=== PATIENT | male | born 1960 | race Caucasian/White ===

== ENCOUNTER 2017-09-13 01:53 | Day surgery (SDC) | payer BC ==
[~2017-09-13] VITALS: Ht 182.9 cm; Wt 103.9 kg
[2017-09-13] MEDS ORDERED: LIDOCAINE/SOD BICARB 8.4% SYR ID ONE (13:15)
[2017-09-13] MEDS ORDERED: NORMOSOL R SOLN(*) 1000 ML BAG 1,000 ML IV PRN (13:15)
[2017-09-13 13:22] VITALS: BP 150/94
[2017-09-13 14:25] VITALS: BP 130/88
[2017-09-13 14:55] VITALS: BP 116/85
== END 2017-09-13 15:09 | disposition home or self-care (01) ==
LOC: OR 01:53
PROVIDERS: ATTEND Family Medicine
DX: Z12.11 Encounter for screening for malignant neoplasm of colon (principal); E11.9 Type 2 diabetes mellitus without complications
CPT/HCPCS: 36416; 82948

== ENCOUNTER → 2017-10-03 | Outpatient (CLI) | payer BC | LOC: RESP 20:54 | PROVIDERS: ATTEND Physician Assistant | DX: G47.33 Obstructive sleep apnea (adult) (pediatric) (principal); G47.61 Periodic limb movement disorder; G47.36 Sleep related hypoventilation in conditions classified elsewhere; E66.9 Obesity, unspecified ==

== ENCOUNTER → 2018-06-18 | Outpatient (CLI) | payer BC ==
--- NOTE | 2018-06-18 10:18 | EKG ---
FACILITY: [facility] PATIENT NAME: SABRA PFEIFFER : [id number] MR: [id number] V: [id number] EXAM DATE: ORDERING PHYSICIAN: DALILA PACE TECHNOLOGIST: Test Reason : Blood Pressure : / mmHG Vent. Rate : 120 BPM Atrial Rate : 182 BPM P-R Int : 000 ms QRS Dur : 098 ms QT Int : 330 ms P-R-T Axes : 000 062 -59 degrees QTc Int : 466 ms Atrial fibrillation with rapid ventricular response Nonspecific ST abnormality Abnormal QRS-T angle, consider primary T wave abnormality Abnormal ECG No previous ECGs available Confirmed by Anand Vilchis ([id number]) on 06/18/2018 10:37:57 PM Referred By: Confirmed By:Anand Crum
== END ==
LOC: RESP 09:31
PROVIDERS: ATTEND Physician Assistant
DX: I48.91 Unspecified atrial fibrillation (principal); R94.31 Abnormal electrocardiogram [ECG] [EKG]; I45.81 Long QT syndrome
CPT/HCPCS: 93005

== ENCOUNTER → 2018-06-26 | Outpatient (CLI) | payer BC | LOC: US 00:30 | PROVIDERS: ATTEND Physician Assistant | DX: I51.7 Cardiomegaly (principal); I48.91 Unspecified atrial fibrillation | CPT/HCPCS: 93306 ==

== ENCOUNTER → 2018-09-12 | Outpatient (CLI) | payer BC ==
[~2018-09-12] MED LIST: REGADENOSON 0.4 MG/5 ML SYR ONE
--- NOTE | 2018-09-12 17:52 | RADIOLOGY IMAGING REPORT ---
FACILITY: [facility] [place] PATIENT NAME: Ray Garvey : 1960 MR: [id number] V: [id number] EXAM DATE: ORDERING PHYSICIAN: RONI WARE TECHNOLOGIST: Location: [facility] [place] Patient: Ray Garvey : 1960 Visit/Account:[id number] Date of Sevice: 09/12/2018 EXAMINATION: Single isotope SPECT imaging with regadenoson infusion and gated SPECT imaging. DATE OF EXAMINATION: 09/12/2018. DATE OF INTERPRETATION: 09/12/2018. REQUESTING PHYSICIAN: RONI WARE/Dr. Ulloa. INDICATION: The patient is a 58-year-old male evaluated for atrial fibrillation. PROCEDURE: After informed consent the patient received an intravenous injection of 13.3 mCi of Tc-99 m sestamibi followed at an appropriate time interval by rest imaging. The patient then subsequently received an intravenous infusion of 0.4 mg of regadenoson per protocol without complication. Resting heart rate was 61 bpm with a peak heart rate of 82 bpm. Blood pressure at rest was 138 / 82 and fol lowing infusion was 144 / 79. Baseline EKG demonstrates sinus rhythm with nonspecific ST abnormality . There were no EKG changes of ischemia following infusion. Symptoms were nonspecific. The patient then received an intravenous injection of 28.8 mCi of Tc-99m sestamibi followed by stress imaging. RAW DATA: Examination of the summed raw data revealed a fair quality study. MYOCARDIAL PERFUSION: The tomographic images demonstrate normal myocardial perfusion. GATED IMAGES: The gated images demonstrate normal LV wall motion and systolic function, LVEF was 74% . IMPRESSION: 1. Nondiagnostic stress ECG with Lexiscan 2. Normal myocardial perfusion scan. 3. Normal LV systolic function; LVEF 74%. 4. Based on the results of this exam, the patient appears to be at low risk for future cardiovascular events. Report Dictated By: Shant Baugh at 09/12/2018 5:41 PM Report E-Signed By: Shant Baugh at 09/12/2018 5:48 PM WSN:[id number]
--- NOTE | 2018-09-12 19:45 | RT STRESS TEST REPORT ---
FACILITY: [facility] PATIENT NAME: SABRA PFEIFFER : [id number] MR: [id number] V: [id number] EXAM DATE: ORDERING PHYSICIAN: RONI WARE TECHNOLOGIST: Leslie Acquisition Time: 2018-09-12 14:38:09 Total Exercise Time: 00:01:00 Test Indications: A-FIB Medications: see nuclear med sheet Protocol: LEXISCAN Max HR: 082 BPM 50% of Pred: 162 BPM Max BP: 144/079 mmHG Max Work Load: 1.0 METS Nondiagnostic EKG portion of study, await imaging results. Confirmed by Anand Vilchis ([id number]) on 09/12/2018 7:44:56 PM Referred By: Overread By: Anand Crum
== END ==
LOC: NUC 00:39
PROVIDERS: ATTEND Internal Medicine
DX: I48.1 Persistent atrial fibrillation (principal)
CPT/HCPCS: 78452; 93017; A9500; J2785